=== PATIENT | male | born 1985 | race Caucasian/White ===

== ENCOUNTER 2019-03-07 11:30 | Inpatient (IN) | payer OTHER, SELFPAY ==
[2019-03-07 12:24] LABS: Bilirubin Negative (Negative); Blood, Urine Negative (Negative); Glucose, Urine (Dipstick) Negative (Negative); Leukocyte Negative (Negative); Nitrite Negative (Negative); Protein, Urine (Dipstick) Negative (Neg-Trace); Urobilinogen 0.2 mg/dL (Less than 2)
[2019-03-07 12:29] LABS: Clarity Cloudy (Clear)
[2019-03-07 12:34] LABS: #Basophils 0.1 thou/uL (0.0-0.2); #Eosinphils 0.1 thou/uL (0.0-0.7); #Lymphocytes 2.4 thou/uL (1.20-3.40); #Monocytes 1.1 thou/uL (0.11-0.59); #Neutrophils 8.3 thou/uL (1.40-6.50); %Basophils 0.9 % (0.0-1.0); %Lymphocytes 20.1 % (21.0-51.0); %Monocytes 8.9 % (0.0-10.0); %Neutrophils 69.2 % (42.0-75.0); Hemoglobin 15.2 g/dL (14.0-18.0); Mean Corpuscular HGB CONC 34.2 g/dL (32.0-36.0); Mean Corpuscular Hemoglobin 31.1 pg (27.0-31.0); Mean Corpuscular Volume 90.9 fL (78.0-98.0); Platelet Count 277 thou/uL (130-400); Red Blood Cell (RBC) Count 4.87 mill/uL (4.70-6.10)
[2019-03-07 12:56] LABS: Acetaminophen Less than 6.0 mcg/mL (10.0-30.0); Alcohol Less than 10 mg/dL (Less than 10); Salicylate Less than 8.0 mg/dL (15.0-30.0)
[2019-03-07 12:57] LABS: ALT (SGPT) 53 U/L (8-55); AST (SGOT) 89 U/L (5-34); Albumin 4.6 g/dL (3.5-5.0); Alkaline Phosphatase 64 U/L (40-110); Anion Gap 17 mmol/L (10-20); BUN (Urea Nitrogen) 15 mg/dL (8.9-20.6); Bilirubin, Total 1.4 mg/dL (0.2-1.2); CK (CPK) 1617 U/L (30-200); Calc. Creatinine Clearance 0 mL/min (70-130); Calcium 9.7 mg/dL (7.8-10.44); Carbon Dioxide 23 mmol/L (22-29); Chloride 99 mmol/L (98-107); Estimated GFR-MDRD Greater than 90; Globulin 2.8 g/dL (2.4-3.5); Glucose 93 mg/dL (70-105); Protein, Total 7.4 g/dL (6.0-8.3); Sodium 135 mmol/L (136-145)
[2019-03-07 13:05] LABS: Cocaine Metabolite Screen Not Detected (NotDetected); Medtox Reader # READER 4; Methamphetamine Detected (NotDetected); Opiate Screen Not Detected (NotDetected); Phencyclidine (PCP) Not Detected (NotDetected); THC/Cannabinoid Screen Not Detected (NotDetected)
[2019-03-07 13:06] LABS: Amphetamine Detected (NotDetected); Barbiturates Screen Not Detected (NotDetected); Benzodiazepine Screen Not Detected (NotDetected); Medtox Control Line Valid? VALID (VALID); Methadone Not Detected (NotDetected); Oxycodone Screen Not Detected (NotDetected); Tricyclic Screen Not Detected (NotDetected)
[2019-03-07 16:38] VITALS: BMI 33.9
[2019-03-07] MEDS ORDERED: Senokot S 8.6-50 MG TAB PO PRN (18:17)
[2019-03-07] MEDS ORDERED: Guaifenesin DM 100-10/5 ML UDCUP PO PRN (18:17)
[2019-03-07] MEDS ORDERED: Ondansetron PF 4 MG/2 ML Vial IVP PRN (18:17)
[2019-03-07] MEDS: Nicotine 21 MG PATCH TD SCH (18:40)
[2019-03-07] MEDS: Sodium Chloride 0.9% 1,000 ML IV SCH (18:42)
--- NOTE | 2019-03-07 19:22 | HP ---
REASON FOR ADMISSION: Rhabdomyolysis, acute psychosis, methamphetamine abuse, suicidal ideation. HISTORY OF PRESENTING ILLNESS: The patient gives history of using meth daily from last 2 weeks. He says he is fed up with his habit. He says he came to ER because he was hearing voices, which were not there and thinks that he got paranoid. He has been homeless for the last 2 weeks. He lost his job from last 5 weeks due to meth abuse. Prior to the 2 weeks, he was living in his sister's house. On arrival here, the patient's urine drug screen confirmed methamphetamine abuse. He was also dehydrated with ketones in his urine. His CK levels are 1617. PAST MEDICAL AND SURGICAL HISTORY: History of hypertension, history of prior drug rehab 1 year back. He was diagnosed being schizophrenic a year and half back. No surgical history. CURRENT MEDICATIONS: None. ALLERGIES: NO KNOWN DRUG ALLERGIES. PERSONAL HISTORY: He has been using meth for the last 2 weeks on a continuous basis. He smokes half to 1 pack a day. Does not abuse alcohol per the patient. He says he uses meth by either smoking or shooting it. FAMILY HISTORY: Mother committed suicide when she was 52 years old. Father is living and healthy. The patient is not and does not have children. CODE STATUS: Full. REVIEW OF SYSTEMS: CONSTITUTIONAL: Negative for weight loss or gain, ability to conduct usual activities. SKIN: Negative for rash, itching. EYES: Negative for double vision, pain. ENT/MOUTH: Negative for nose bleeding, neck stiffness, pain, tenderness. CARDIOVASCULAR: Negative for palpitations, dyspnea on exertion, orthopnea. RESPIRATORY: Negative for shortness of breath, wheezing, cough, hemoptysis, fever or night sweats. GASTROINTESTINAL: Negative for poor appetite, abdominal pain, heartburn, nausea , vomiting, constipation, or diarrhea. GENITOURINARY: Negative for urgency, frequency, dysuria, nocturia. MUSCULOSKELETAL: Negative for pain, swelling. NEUROLOGIC/PSYCHIATRIC: Negative for anxiety, depression. ALLERGY/IMMUNOLOGIC: Negative for skin rash, bleeding tendency. PHYSICAL EXAMINATION: GENERAL: The patient is a 33-year-old male, who is currently not in any acute distress. VITAL SIGNS: Blood pressure 176/123, pulse 78 per minute, respiratory rate 20 per minute, temperature 97.9 degrees Fahrenheit, saturating 100% on room air. NECK: Supple. No elevated JVD. HEENT: Eyes; extraocular muscles intact. Pupils reacting to light. Oral cavity, mucous membranes are dry. No exudates or congestion. CARDIOVASCULAR: S1 and S2 heard. Regular rhythm. RESPIRATORY: Air entry, 2+ bilateral. Scattered rhonchi plus no wheezes. ABDOMEN: Soft. Bowel sounds heard. No tenderness, rigidity, or guarding. EXTREMITIES: No peripheral edema or calf tenderness. VASCULAR: Peripheral pulses are 2+ bilateral. No ischemic ulcerations or gangrene. CENTRAL NERVOUS SYSTEM: No gross focal motor deficits noted. The patient moves all 4 extremities. PSYCHIATRIC: The patient is currently not having any hallucinations or delusions at present. LABORATORY DATA: Urine drug screen done shows methamphetamine and amphetamines. Plasma alcohol less than 10. UA shows 40 mg/dL of ketone. BUN 15, creatinine 0.8, serum bicarb 23, sodium 135, total bilirubin 1.4, AST 89, ALT 53, CK levels 1617 , albumin 4.6. White count of 12, H and H 15 and 44, platelet count 277 with 69% neutrophils. IMAGING STUDIES: EKG done shows sinus rhythm at 77 beats per minute. CLINICAL IMPRESSION AND PLAN: The patient will be admitted to medical floor for uncontrolled hypertension due to chronic methamphetamine abuse, rhabdomyolysis, moderate dehydration, and suicidal ideation. We will gently hydrate him with normal saline at 100 mL per hour. Clonidine and hydralazine will be used to get his blood pressure down. Once he is cleared medically, [facility] consultation will be requested for inpatient psychiatric hospitalization/drug rehab. In view of the patient using IV meth, we will obtain a hepatitis panel. He has been negative in the past. We will continue to closely monitor him on medical floor. He currently has a one-to-one sitter. Job ID: [id number] [facility]
[2019-03-07 19:30] LABS: HBSAg Index 0.24 S/CO (0-0.99); Hep A IgM AB Non-Reactive (NonReactive); Hep B Surf Ag Non-Reactive S/CO (NonReactive); Hep C IgG Ab Non-Reactive (NonReactive); Hepatitis B Core IgM Abs Non-Reactive (NonReactive)
[2019-03-07] MEDS: Famotidine 20 MG TAB PO SCH (20:59)
[2019-03-07] MEDS ORDERED: Loratadine 10 MG TAB PO SCH (21:45)
[2019-03-07] MEDS ORDERED: Cetirizine HCl 10 MG TAB PO SCH (21:45)
[2019-03-08] MEDS: Sodium Chloride 0.9% 1,000 ML IV SCH ×3 (00:30→21:19)
[2019-03-08 06:18] LABS: #Basophils 0.1 thou/uL (0.0-0.2); #Eosinphils 0.2 thou/uL (0.0-0.7); #Lymphocytes 2.3 thou/uL (1.20-3.40); #Monocytes 0.5 thou/uL (0.11-0.59); #Neutrophils 2.5 thou/uL (1.40-6.50); %Basophils 1.2 % (0.0-1.0); %Eosinophils 3.6 % (0.0-10.0); %Lymphocytes 41.1 % (21.0-51.0); %Monocytes 9.5 % (0.0-10.0); %Neutrophils 44.6 % (42.0-75.0); Hemoglobin 14.5 g/dL (14.0-18.0); Mean Corpuscular HGB CONC 33.5 g/dL (32.0-36.0); Mean Corpuscular Hemoglobin 31.4 pg (27.0-31.0); Mean Corpuscular Volume 93.6 fL (78.0-98.0); Mean Platelet Volume 7.5 fL (7.4-10.4); Platelet Count 262 thou/uL (130-400); RBC Distribution Width 12.3 % (11.5-14.5); Red Blood Cell (RBC) Count 4.64 mill/uL (4.70-6.10); White Blood Cell (WBC) Count 5.5 thou/uL (4.8-10.8)
[2019-03-08 06:40] LABS: ALT (SGPT) 40 U/L (8-55); AST (SGOT) 50 U/L (5-34); Alkaline Phosphatase 57 U/L (40-110); Anion Gap 12 mmol/L (10-20); BUN (Urea Nitrogen) 9 mg/dL (8.9-20.6); Bilirubin, Total 0.9 mg/dL (0.2-1.2); CK (CPK) 540 U/L (30-200); Calc. Creatinine Clearance 226 mL/min (70-130); Calcium 8.8 mg/dL (7.8-10.44); Carbon Dioxide 22 mmol/L (22-29); Chloride 108 mmol/L (98-107); Estimated GFR-MDRD Greater than 90; Globulin 2.5 g/dL (2.4-3.5); Glucose 85 mg/dL (70-105); Potassium 3.8 mmol/L (3.5-5.1); Protein, Total 6.5 g/dL (6.0-8.3); Sodium 138 mmol/L (136-145)
[2019-03-08] MEDS: Enoxaparin Sodium 40 MG/0.4 ML SYRINGE SC SCH (08:31)
[2019-03-08] MEDS: Famotidine 20 MG TAB PO SCH ×2 (08:31→20:17)
[2019-03-08] MEDS: Loratadine 10 MG TAB PO SCH (08:31)
[2019-03-08] MEDS: Nicotine 21 MG PATCH TD SCH (18:06)
--- NOTE | 2019-03-08 18:23 | PDOC.HOSPP ---
- Subjective Subjective: Pt feels well. He is not withdrawing form meth and has no complaints. He says he will like to be admitted for inpt drug rehab. - Objective Vital Signs & Weight: Vital Signs (12 hours) Temp Pulse Resp BP Pulse Ox 03/08/19 16:00 65 20 139/79 95 03/08/19 11:10 98.0 F 69 20 129/73 98 03/08/19 08:00 97 Weight Weight 250 lb 0.067 oz I&O: 03/07/19 03/08/19 03/09/19 06:59 06:59 06:59 Intake Total 1700 1800 Balance 1700 1800 Result Diagrams: 03/08/19 06:09 03/08/19 06:09 Hospitalist ROS - Review of Systems Constitutional: denies: fever, chills, sweats, weakness, malaise, other Eyes: denies: pain, vision change, conjunctivae inflammation, eyelid inflammation, redness, other ENT: denies: ear pain, ear discharge, nose pain, nose discharge, nose congestion , mouth pain, mouth swelling, throat pain, throat swelling, other Respiratory: denies: cough, dry, shortness of breath, hemoptysis, SOB with excertion, pleuritic pain, sputum, wheezing, other Cardiovascular: denies: chest pain, palpitations, orthopnea, paroxysmal noc. dyspnea, edema, light headedness, other Gastrointestinal: denies: nausea, vomiting, abdominal pain, diarrhea, constipation, melena, hematochezia, other Genitourinary: denies: dysuria, frequency, incontinence, hematuria, retention, other Musculoskeletal: denies: neck pain, shoulder pain, arm pain, back pain, hand pain, leg pain, foot pain, other Skin: denies: rash, lesions, sierra, bruising, other Neurological: denies: weakness, numbness, incoordination, change in speech, confusion, seizures, other - Medication Medications: Active Medications Generic Name Dose Route Start Last Admin Trade Name Freq PRN Reason Stop Dose Admin Enoxaparin Sodium 40 mg 03/08/19 09:00 03/08/19 08:31 Lovenox SC 40 mg 0900 ISMA Administration Famotidine 20 mg 03/07/19 21:00 03/08/19 08:31 Pepcid PO 20 mg BID ISMA Administration Sodium Chloride 1,000 mls @ 100 mls/hr 03/07/19 18:17 03/08/19 15:52 Normal Saline 0.9% IV 1,000 mls .Q10H ISMA Administration Loratadine 10 mg 03/08/19 09:00 03/08/19 08:31 Claritin PO 10 mg DAILY ISMA Administration Nicotine 21 mg 03/07/19 18:30 03/08/19 18:06 Nicoderm Patch TD 21 mg Q24HR ISMA Administration - Exam General Appearance: awake alert Eye: PERRL, anicteric sclera ENT: normocephalic atraumatic, moist mucosa Neck: supple, symmetric, no JVD, no thyromegaly, no lymphadenopathy Heart: RRR, no murmur, no gallops, no rubs Respiratory: CTAB, no wheezes, no ronchi Gastrointestinal: soft, non-tender, non-distended, normal bowel sounds Extremities: no cyanosis, no clubbing, no edema Skin: no lesions, no rashes Neurological: cranial nerve grossly intact, no weakness, no focal deficits Musculoskeletal: normal strength, no muscle wasting Psychiatric: normal affect, normal behavior, A&O x 3 Hosp A/P (1) Suicidal ideations Code(s): R45.851 - SUICIDAL IDEATIONS Status: Acute Plan: Pt feels well, he denies current suicidal ideations. Will still like to cont 1: 1 sitter until cleared by [facility]. Will consult [facility] and f/u with raisa recs. (2) Methamphetamine abuse Code(s): F15.10 - OTHER STIMULANT ABUSE, UNCOMPLICATED Status: Acute Plan: Pt will like in pt drug rehab. Will consult [facility]. (3) Rhabdomyolysis Code(s): M62.82 - RHABDOMYOLYSIS Status: Acute Plan: Improving with hydration. (4) Transaminitis Code(s): R74.0 - NONSPEC ELEV OF LEVELS OF TRANSAMNS & LACTIC ACID DEHYDRGNSE Status: Acute Plan: Improving. Cont to monitor LFTs. (5) Tobacco abuse Code(s): Z72.0 - TOBACCO USE Status: Acute Plan: Cont Nicotine patch. - Plan PPx: SCDs. CODE: FULL. Dispo: Cont 1:1. F/u with [facility] consult and recs.
[2019-03-09] MEDS: Sodium Chloride 0.9% 1,000 ML IV SCH ×2 (06:41→17:51)
[2019-03-09] MEDS: Famotidine 20 MG TAB PO SCH ×2 (08:09→20:00)
[2019-03-09] MEDS: Loratadine 10 MG TAB PO SCH (08:09)
[2019-03-09] MEDS: Enoxaparin Sodium 40 MG/0.4 ML SYRINGE SC SCH (08:09)
--- NOTE | 2019-03-09 14:13 | PDOC.HOSPP ---
- Subjective Subjective: No new issues Seen by [facility] and will need inpt Psych/ Rehab placement. - Objective Vital Signs & Weight: Vital Signs (12 hours) Temp Pulse Resp BP BP Pulse Ox 03/09/19 11:09 97.5 F L 62 20 136/82 97 03/09/19 08:00 98.0 F 63 20 140/88 96 03/09/19 07:56 98 Weight Weight 250 lb 0.067 oz I&O: 03/08/19 03/09/19 03/10/19 06:59 06:59 06:59 Intake Total 1700 1800 Balance 1700 1800 Result Diagrams: 03/08/19 06:09 03/08/19 06:09 Hospitalist ROS - Review of Systems Constitutional: denies: fever, chills, sweats, weakness, malaise, other Eyes: denies: pain, vision change, conjunctivae inflammation, eyelid inflammation, redness, other ENT: denies: ear pain, ear discharge, nose pain, nose discharge, nose congestion , mouth pain, mouth swelling, throat pain, throat swelling, other Respiratory: denies: cough, dry, shortness of breath, hemoptysis, SOB with excertion, pleuritic pain, sputum, wheezing, other Cardiovascular: denies: chest pain, palpitations, orthopnea, paroxysmal noc. dyspnea, edema, light headedness, other Gastrointestinal: denies: nausea, vomiting, abdominal pain, diarrhea, constipation, melena, hematochezia, other Genitourinary: denies: dysuria, frequency, incontinence, hematuria, retention, other Musculoskeletal: denies: neck pain, shoulder pain, arm pain, back pain, hand pain, leg pain, foot pain, other Skin: denies: rash, lesions, sierra, bruising, other Neurological: denies: weakness, numbness, incoordination, change in speech, confusion, seizures, other - Medication Medications: Active Medications Generic Name Dose Route Start Last Admin Trade Name Freq PRN Reason Stop Dose Admin Enoxaparin Sodium 40 mg 03/08/19 09:00 03/09/19 08:09 Lovenox SC Not Given 0900 ISMA Famotidine 20 mg 03/07/19 21:00 03/09/19 08:09 Pepcid PO 20 mg BID ISMA Administration Sodium Chloride 1,000 mls @ 100 mls/hr 03/07/19 18:17 03/09/19 06:41 Normal Saline 0.9% IV 1,000 mls .Q10H ISMA Administration Loratadine 10 mg 03/08/19 09:00 03/09/19 08:09 Claritin PO 10 mg DAILY ISMA Administration Nicotine 21 mg 03/07/19 18:30 03/08/19 18:06 Nicoderm Patch TD 21 mg Q24HR ISMA Administration - Exam General Appearance: NAD, awake alert Eye: PERRL, anicteric sclera ENT: normocephalic atraumatic, moist mucosa Neck: supple, symmetric, no JVD, no thyromegaly Heart: RRR, no murmur, no gallops, no rubs Respiratory: CTAB, no wheezes, no rales, no ronchi Gastrointestinal: soft, non-tender, non-distended, normal bowel sounds Extremities: no cyanosis, no clubbing, no edema Skin: no lesions, no rashes Neurological: cranial nerve grossly intact, no focal deficits Musculoskeletal: normal tone, normal strength, no muscle wasting Psychiatric: normal affect, normal behavior, A&O x 3 Hosp A/P - Plan Hosp A/P (1) Suicidal ideations Code(s): R45.851 - SUICIDAL IDEATIONS Status: Acute Plan: Pt feels well, he denies current suicidal ideations. Pt was seen by [facility] yday, and will need inpt Psych/rehab admission. Will caser in to work on this transfer. Will still cont 1:1 sitter for now. (2) Methamphetamine abuse Code(s): F15.10 - OTHER STIMULANT ABUSE, UNCOMPLICATED Status: Acute Plan: Pt was seen by [facility] and has been rec for d/c to inpt drug Rehab. Will f/u with caser in. (3) Rhabdomyolysis Code(s): M62.82 - RHABDOMYOLYSIS Status: Acute Plan: Improving with hydration. (4) Transaminitis Code(s): R74.0 - NONSPEC ELEV OF LEVELS OF TRANSAMNS & LACTIC ACID DEHYDRGNSE Status: Acute Plan: Improving. Cont to monitor LFTs. (5) Tobacco abuse Code(s): Z72.0 - TOBACCO USE Status: Acute Plan: Cont Nicotine patch. PPx: SCDs. CODE: FULL. Dispo: Cont 1:1. F/u with caser in in Inpt psych/Rehab d/c.
[2019-03-09] MEDS: Nicotine 21 MG PATCH TD SCH (17:49)
[2019-03-09] MEDS: cloNIDine 0.1 MG TAB PO PRN (17:49)
[2019-03-10] MEDS: Sodium Chloride 0.9% 1,000 ML IV SCH ×2 (04:58→19:42)
[2019-03-10 05:52] LABS: ALT (SGPT) 23 U/L (8-55); AST (SGOT) 17 U/L (5-34); Albumin 3.6 g/dL (3.5-5.0); Alkaline Phosphatase 51 U/L (40-110); Anion Gap 12 mmol/L (10-20); BUN (Urea Nitrogen) 8 mg/dL (8.9-20.6); Bilirubin, Total 0.2 mg/dL (0.2-1.2); Calc. Creatinine Clearance 226 mL/min (70-130); Calcium 8.7 mg/dL (7.8-10.44); Carbon Dioxide 23 mmol/L (22-29); Chloride 109 mmol/L (98-107); Estimated GFR-MDRD Greater than 90; Globulin 2.4 g/dL (2.4-3.5); Glucose 103 mg/dL (70-105); Potassium 3.9 mmol/L (3.5-5.1); Sodium 140 mmol/L (136-145)
[2019-03-10 06:52] LABS: #Eosinphils 0.2 thou/uL (0.0-0.7); #Lymphocytes 2.4 thou/uL (1.20-3.40); #Monocytes 0.4 thou/uL (0.11-0.59); #Neutrophils 3.3 thou/uL (1.40-6.50); %Basophils 0.6 % (0.0-1.0); %Eosinophils 2.8 % (0.0-10.0); %Lymphocytes 38.1 % (21.0-51.0); %Monocytes 6.9 % (0.0-10.0); %Neutrophils 51.7 % (42.0-75.0); Hemoglobin 12.9 g/dL (14.0-18.0); Mean Corpuscular HGB CONC 33.8 g/dL (32.0-36.0); Mean Corpuscular Volume 94.7 fL (78.0-98.0); Mean Platelet Volume 7.5 fL (7.4-10.4); Platelet Count 314 thou/uL (130-400); RBC Distribution Width 12.5 % (11.5-14.5); Red Blood Cell (RBC) Count 4.02 mill/uL (4.70-6.10); White Blood Cell (WBC) Count 6.4 thou/uL (4.8-10.8)
[2019-03-10] MEDS: Famotidine 20 MG TAB PO SCH ×2 (08:30→20:36)
[2019-03-10] MEDS: Loratadine 10 MG TAB PO SCH (08:30)
[2019-03-10] MEDS: Enoxaparin Sodium 40 MG/0.4 ML SYRINGE SC SCH (08:30)
[2019-03-10] MEDS: cloNIDine 0.1 MG TAB PO PRN (09:13)
--- NOTE | 2019-03-10 16:36 | PDOC.HOSPP ---
- Subjective Subjective: No new issues. Still awaiting d/c to Inpt Psych. - Objective Vital Signs & Weight: Vital Signs (12 hours) Temp Pulse Resp BP Pulse Ox 03/10/19 12:08 98.1 F 60 18 165/87 H 98 03/10/19 08:06 98.1 F 59 L 18 182/100 H 99 Weight Weight 250 lb 0.067 oz I&O: 03/09/19 03/10/19 03/11/19 06:59 06:59 06:59 Intake Total 1800 Balance 1800 Result Diagrams: 03/10/19 06:44 03/10/19 05:25 Hospitalist ROS - Review of Systems Constitutional: denies: fever, chills, sweats, weakness, malaise, other Eyes: denies: pain, vision change, conjunctivae inflammation, eyelid inflammation, redness, other ENT: denies: ear pain, ear discharge, nose pain, nose discharge, nose congestion , mouth pain, mouth swelling, throat pain, throat swelling, other Respiratory: denies: cough, dry, shortness of breath, hemoptysis, SOB with excertion, pleuritic pain, sputum, wheezing, other Cardiovascular: denies: chest pain, palpitations, orthopnea, paroxysmal noc. dyspnea, edema, light headedness, other Gastrointestinal: denies: nausea, vomiting, abdominal pain, diarrhea, constipation, melena, hematochezia, other Genitourinary: denies: dysuria, frequency, incontinence, hematuria, retention, other Musculoskeletal: denies: neck pain, shoulder pain, arm pain, back pain, hand pain, leg pain, foot pain, other Skin: denies: rash, lesions, sierra, bruising, other Neurological: denies: weakness, numbness, incoordination, change in speech, confusion, seizures, other - Medication Medications: Active Medications Generic Name Dose Route Start Last Admin Trade Name Freq PRN Reason Stop Dose Admin Clonidine 0.1 mg 03/07/19 19:02 03/10/19 09:13 Catapres PO 0.1 mg Q4H PRN Administration sbp>150 Enoxaparin Sodium 40 mg 03/08/19 09:00 03/10/19 08:30 Lovenox SC 40 mg 0900 ISMA Administration Famotidine 20 mg 03/07/19 21:00 03/10/19 08:30 Pepcid PO 20 mg BID ISMA Administration Sodium Chloride 1,000 mls @ 100 mls/hr 03/07/19 18:17 03/10/19 04:58 Normal Saline 0.9% IV 1,000 mls .Q10H ISMA Administration Loratadine 10 mg 03/08/19 09:00 03/10/19 08:30 Claritin PO 10 mg DAILY ISMA Administration Nicotine 21 mg 03/07/19 18:30 03/09/19 17:49 Nicoderm Patch TD 21 mg Q24HR ISMA Administration - Exam General Appearance: NAD, awake alert Eye: PERRL, anicteric sclera ENT: normocephalic atraumatic, moist mucosa Neck: supple, symmetric, no JVD, no thyromegaly Heart: RRR, no murmur, no gallops, no rubs Respiratory: CTAB, no wheezes, no rales, no ronchi Gastrointestinal: soft, non-tender, non-distended, normal bowel sounds Extremities: no cyanosis, no clubbing, no edema Skin: no lesions, no rashes Neurological: cranial nerve grossly intact, no focal deficits Musculoskeletal: normal strength Psychiatric: normal affect, normal behavior, A&O x 3 Hosp A/P - Plan Hosp A/P (1) Suicidal ideations Code(s): R45.851 - SUICIDAL IDEATIONS Status: Acute Plan: Pt feels well, he denies current suicidal ideations. Pt has been seen by [facility], and will need inpt Psych/rehab admission. business mgr is working on this. Will still cont 1:1 sitter for now. (2) Methamphetamine abuse Code(s): F15.10 - OTHER STIMULANT ABUSE, UNCOMPLICATED Status: Acute Plan: Pt was seen by [facility] and has been rec for d/c to inpt drug Rehab. business mgr is working on this. (3) Rhabdomyolysis Code(s): M62.82 - RHABDOMYOLYSIS Status: Acute Plan: Resolved. Will d/c hydration. (4) Transaminitis Code(s): R74.0 - NONSPEC ELEV OF LEVELS OF TRANSAMNS & LACTIC ACID DEHYDRGNSE Status: Acute Plan: Resoved. (5) Tobacco abuse Code(s): Z72.0 - TOBACCO USE Status: Acute Plan: Cont Nicotine patch. PPx: SCDs. CODE: FULL. Dispo: Cont 1:1. F/u with case reviewer in Inpt psych/Rehab d/c.
[2019-03-10] MEDS: Nicotine 21 MG PATCH TD SCH (20:04)
[2019-03-10] MEDS: Acetaminophen 325 MG TAB PO PRN (20:38)
[2019-03-10] MEDS: Lorazepam 2 MG/ML VIAL SLOW IVP PRN (20:39)
[2019-03-11 08:14] VITALS: BP 164/95; TEMP 97.6
[2019-03-11] MEDS: Famotidine 20 MG TAB PO SCH (09:25)
[2019-03-11] MEDS: Loratadine 10 MG TAB PO SCH (09:25)
[2019-03-11] MEDS: Enoxaparin Sodium 40 MG/0.4 ML SYRINGE SC SCH (09:26)
[2019-03-11] MEDS: Lorazepam 2 MG/ML VIAL SLOW IVP PRN (12:58)
[2019-03-11] MEDS: Acetaminophen 325 MG TAB PO PRN (12:58)
[2019-03-11] MEDS: Nicotine 21 MG PATCH TD SCH (18:15)
--- NOTE | 2019-03-12 03:32 | DIS ---
DATE OF ADMISSION: 03/07/2019 DATE OF DISCHARGE: 03/11/2019 DISCHARGE DIAGNOSES: 1. Methamphetamine abuse. 2. Suicidal ideation. 3. Acute rhabdomyolysis, resolving. 4. Transaminitis, mild, resolving. 5. Tobacco abuse. CONSULTATIONS: [facility] Services. PERTINENT LABORATORY AND X-RAY FINDINGS: Total bilirubin ranged between 0.2 to 1.4. AST ranged between 17 to 89, ALT ranged between 23 to 53, total CK ranged between 540 to 1617. Albumin 4.6. TSH 0.96. CBC showed a white blood cell count ranging between 6.4 to 12.0. Urine drug screen dated 03/07/2019, positive for amphetamines/methamphetamines. Hepatitis A, B, and C panel negative 03/07/2019. HOSPITAL COURSE: The patient was admitted after initially presenting with suicidal ideation and methamphetamine abuse. The patient was noted with acute psychosis due to the methamphetamine use as well as hypertension and associated rhabdomyolysis. The patient was treated with IV fluids and monitored with a sitter for one-on-one observation. Serial monitoring of total CK showed overall improvement with hydration therapy and no associated renal failure. The patient metabolically stabilized in 24 hours and was evaluated by [facility] services and deemed candidate for ongoing inpatient psychiatric care. The patient verbalizes the desire to stop using methamphetamines and resume a normal life. The patient has been accepted to [facility], [place], [place] and will transfer on 03/11/2019. I examined the patient at the time of discharge and discussed followup instructions. The patient verbalized understanding and agreement, ready for discharge 03/11/2019. DISCHARGE MEDICATIONS: Reviewed and negative. FOLLOWUP: The patient may follow up with Dr. Jose Grubbs, after discharge from [facility]. CONDITION ON DISCHARGE: Stable. ACTIVITY: Ad-logan. DIET: Regular. CODE STATUS: Full. DISPOSITION: Discharged to [facility], 03/11/2019. TIME SPENT: Total time preparing and coordinating discharge 32 minutes. Job ID: [id number]
== END 2019-03-11 20:20 | DRG 558 ==
LOC: ERS 11:30 → OBSVTOIN 14:52 → T4-B 14:52
PROVIDERS: ADMIT Internal Medicine; ATTEND Internal Medicine
DX: M62.82 Rhabdomyolysis (principal); R45.851 Suicidal ideations; E86.0 Dehydration; F15.188 Other stimulant abuse with other stimulant-induced disorder; F17.210 Nicotine dependence, cigarettes, uncomplicated; F20.9 Schizophrenia, unspecified; I10 Essential (primary) hypertension; R74.0 Nonspecific elevation of levels of transaminase and lactic acid dehydrogenase [LDH]; Z59.0 Homelessness
CPT/HCPCS: 36415; 80053; 80074; 80306; 80307; 81003; 82550; 84443; 85025; 93005; 94760; 96360; J1650; J2060